=== PATIENT | male | born 1995 | race Caucasian/White ===

== ENCOUNTER 2018-09-03 21:07 | Emergency (ER) | payer SELFPAY ==
[~2018-09-03] VITALS: Ht 182.9 cm; Wt 75.0 kg
[2018-09-03 21:13] VITALS: TEMP 98.5
[2018-09-04 02:10] VITALS: BP 115/88; PULSE 85
== END 2018-09-04 02:10 | disposition home or self-care (01) ==
LOC: COL.ER 21:07
DX: S40.011A Contusion of right shoulder, initial encounter (principal); F17.290 Nicotine dependence, other tobacco product, uncomplicated; Z98.890 Other specified postprocedural states; W17.89XA Other fall from one level to another, initial encounter; Y92.828 Other wilderness area as the place of occurrence of the external cause

== ENCOUNTER 2019-05-15 19:10 | Emergency (ER) | payer SELFPAY ==
[~2019-05-15] VITALS: Ht 182.9 cm; Wt 70.5 kg
[2019-05-15 19:46] VITALS: BP 141/64; TEMP 97.8
[2019-05-15 23:06] VITALS: PULSE 86
== END 2019-05-15 23:06 | disposition home or self-care (01) ==
LOC: COL.ER 19:10
DX: S90.32XA Contusion of left foot, initial encounter (principal); W22.8XXA Striking against or struck by other objects, initial encounter